=== PATIENT | male | born 1950 | race Caucasian/White ===

== ENCOUNTER 2021-02-27 09:18 | Outpatient (CLI) | payer OTHER, SELFPAY ==
--- NOTE | ~2021-02-27 | US_ITS ---
EXAMINATION: US venous doppler LE BI EXAM DATE: 02/27/2021 10:46 INDICATION: I87.2 - Venous insufficiency (chronic) (peripheral) TECHNIQUE: Multiple grayscale, color flow and Doppler images of the lower extremity venous systems bi laterally were obtained and reviewed. Saphenous venous mapping. The exam was reviewed on 02/27/2021. There is no prior study for comparison. FINDINGS: Right side: The right common femoral, femoral and profunda veins demonstrate normal color flow, respi ratory variation, augmentation and compressibility. Compressibility, color flow confirmed within the right popliteal, posterior tibial, peroneal, and greater saphenous veins. Right Standing Venous Mapping: reflux seconds duration; vein size. Greater saphenous origin: 0.5 seconds; 9.6 mm. Greater saphenous mid thigh:------ 0 seconds; 5.8 mm. Greater saphenous below knee:--- 0 seconds; 6.4 mm. Lesser saphenous proximally:------ 0 seconds; 3.4 mm. Lesser saphenous distally: 0 seconds; 1.5 mm. Left side: The left common femoral, femoral and profunda veins demonstrate normal color flow, respira tory variation, augmentation and compressibility. Compressibility, color flow confirmed within the l eft popliteal, posterior tibial, peroneal, and greater saphenous veins. Left Standing Venous Mapping: reflux seconds duration; vein size. Greater saphenous origin: 0 seconds; 5.9 mm. Greater saphenous mid thigh:------ 0 seconds; 3.3 mm. Greater saphenous below knee:--- 0 seconds; 4.4 mm. Lesser saphenous proximally:------ 0 seconds; 3.7 mm. Lesser saphenous distally: 0 seconds; 3.4 mm. IMPRESSION: 1. Right greater saphenous origin 0.5 seconds reflux. 2. Venous mapping as above. Reviewed, dictated and finalized at location A. ICIAN RELATIONS REPRESENTATIVE
== END 2021-02-27 09:19 | disposition home or self-care (01) ==
LOC: ANHIMG 09:27
PROVIDERS: PCP Internal Medicine; Visit Provider Orthopaedic Surgery
DX: I87.2 Venous insufficiency (chronic) (peripheral) (principal); M79.671 Pain in right foot; M79.672 Pain in left foot
CPT/HCPCS: 93970

== ENCOUNTER 2021-04-19 09:00 | Outpatient (RCR) | payer OTHER, SELFPAY ==
--- NOTE | 2021-03-21 10:53 | PTOPEVAL ---
PHYSICAL THERAPY EVALUATION AND PLAN OF CARE 03-21-21 Thank you for referring Wilbur Wright to [facility] for the diagnosis of B LE lymphedema. Paxton is scheduled to be seen for therapy? 3 x/week for 5 weeks. Please review, sign, date and return this plan of care KANE. I agree with and certify that the following plan of care is medically necessary. Referring Physician Date Attending Provider: Devon Strauss MD *PT Outpatient Evaluation Document 03/21/21 09:30 LORNA (Rec: 03/21/21 10:52 LORNA [id number]) Outpatient Past Medical History Past Medical History Source of Past Medical History Recalled from Previous Visit, Confirmed with Patient/Family Neurological History Hx Neurological Disorders No Significant History Cardiovascular History Hx Hypertension Yes: meds Respiratory History Hx Respiratory Disorders No Significant History Gastrointestinal History Hx Hernia Yes Genitourinary History Hx Genitourinary Disorders No Significant History Musculoskeletal History Hx Other Musculoskeletal Disorders Yes: B club feet- surgery as child;chronic foot pain-wider shoe & inserts Endocrine History Hx Endocrine Disorders No Significant History HEENT History Hx Other HEENT Disorders Yes: [place]-- war and planes Integumentary History Hx Skin Disorders No Significant History Evaluation Information Problem Diagnosis lymphedema in legs Onset September 2020 Prior Level of Function Activity Level (Last 3 Months) Occupation commercial hvac service technician Activity of Daily Living Ability Independent Indoor/Home Mobility Independent Community Mobility Independent Stairs Ability Independent Functional Cognition (Planning, Shopping Independent , Taking Medications) Cooking Yes Cleaning Yes Laundry Yes Shopping Yes Driving Yes Home Setting Home Type House Mobility Assistive Devices (Used Last 3 None Months) Comments Additional Prior Level of Function pt reports active lifestyle Comments but frustration over more problems doing things and not able to work as long as used to and things are harder to do ; 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
--- NOTE | 2021-03-30 09:33 | PCPTNOTE ---
pt signed consent and his info faxed to [facility] for auth for home compression pump.
--- NOTE | 2021-04-17 11:49 | PCPTNOTE ---
canceled today's appt; pt called and discussed his status on phone: he received his home intermittent compression pump and has been using it on both legs and trunk; wraps for L leg loose due to long holiday weekend, so he removed and put the compression garment on his L leg. Has been wearing compression garment on his R leg without any problems. And the L is doing OK also. Discussed with him, cancel today's appt, have him continue with above, then come in for next appt, on Sat, to measure and assess if compression garments are maintaining his lymphedema. With the reassessment on Sat, if all is good, it will be his last day.
--- NOTE | 2021-04-19 09:53 | PTOPEVAL ---
PHYSICAL THERAPY DISCHARGE 04-19-21 Refer to the clinical summary below, for his status today, compared to the initial evaluation. The goals have been achieved, therefore, he will be discharged from PT services. Thank you for referring Wilbur Wright to [facility].? Please review, sign, date and return this Discharge KANE. I agree with and certify that the following plan of care is medically necessary. Referring Physician Date Attending Provider: Devon Strauss MD Assessment Status Discharge Subjective Information Bill reports: compression knee Query Text:As Reported By Patient/ highs are comfortable, a Family challenge to put on, but tolerate them without any problems; using home intermittent compression pumps daily; walking is easier and better; is pleased with how his legs are; agree to discharge from PT; Pain Assessment Timing of Pain Assessment Timing of Pain Assessment Assessment Self Report Self Report Pain Level 0 Pain Score Pain Score 0: Self Report Skin Inspection Comment L LE: slight redness over lower leg from bottom foot to 20 cm; slight firmness over medial ankle, where he kicked something and injured his ankle- bruising is gone now thigh with good skin color and without firmness R LE: no redness or firmness over leg, good skin color; have elevated area/ fluid cyst over medial aspect over crease of anterior ankle; pt to dept with R and L calf high compression garment intact; he reports don/ doffing indep; he is not using gloves; there is a small hole in L ankle area- reinforced wearing socks with his boots to protect the garments; reviewed self massage, skin care, lotion, replacing garments--and monitor if 20-30 mmHg is not maintaining, may need more compression with 30-
== END 2021-04-19 16:08 | disposition home or self-care (01) ==
LOC: ANHPT 09:00
PROVIDERS: PCP Internal Medicine; Visit Provider Orthopaedic Surgery
DX: I89.0 Lymphedema, not elsewhere classified (principal); I87.2 Venous insufficiency (chronic) (peripheral)
CPT/HCPCS: 29581; 97016; 97140; 97161

== ENCOUNTER 2022-08-07 10:13 | Emergency (ER) | payer OTHER, SELFPAY ==
--- NOTE | ~2022-08-07 | XR_ITS ---
Right foot Technique: AP, oblique, and lateral views were obtained. Clinical History: Pain Findings: No acute fracture or dislocation is seen. There is a small chronic, nonunited fracture frag ment at the distal aspect of the calcaneus. Osseous alignment is anatomic. Mild to moderate degenerat brian changes are noted at the first MTP joint and interphalangeal joint of the great toe. Mild degener ative change noted at the tibiotalar joint. Soft tissues are unremarkable. Impression: No acute fracture or dislocation. 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 Degenerative changes, as detailed above. Reviewed, dictated and finalized at location . Impression: No acute fracture or dislocation. Small chronic nonunited fracture fragment at the distal aspect of the calcaneus . Degenerative changes, as detailed above.
[2022-08-07 10:31] VITALS: BP 110/65; PULSE 80; RESP 20; TEMP 37.2; O2SAT 100
--- NOTE | 2022-08-07 11:40 | ED.LOWEXIN ---
HPI - Extremity Injury (Lower) General Chief Complaint: Extremity Injury, Lower Stated Complaint: right foot pain Time Seen by Provider: 08/07/22 11:25 Source: patient, RN notes reviewed and old records reviewed Mode of arrival: ambulatory Limitations: no limitations History of Present Illness HPI Narrative: 72-year-old male presents to [facility] with complaints of right foot pain for the past 3 days with no known injury. Patient reports pain as 6/ 10 to dorsal and medial aspect of his right foot, foot is swollen with palpable pedal pulse present and foot warm to touch with nail beds having brisk capillary refill.Patient denies any calf pain or swelling or any known injury to right foot. Patient does have history of cub foot repair to bilateral feet as child and history of venous insufficiency lower extremities and wears pneumatic boots at night. MD complaint: other (right foot pain) Onset (ago): day(s) (3) Severity scale (1-10): 6 Treatments prior to arrival: other (none) Related Data Home Medications Medication Instructions Recorded Confirmed amlodipine 5 mg-benazepril 20 mg 1 cap PO DIRECTED 08/07/22 08/07/22 capsule metoprolol succinate 50 mg 50 mg PO DIRECTED 08/07/22 08/07/22 tablet,extended release 24 hr Allergies Allergy/AdvReac Type Severity Reaction Status Date / Time No Known Allergies Allergy Verified 08/07/22 10:35 Review of Systems Review of Systems: CONSTITUTIONAL: Denies fever, chills, or sweats. EYES: Denies visual changes, redness, or discharge. ENT: Denies rhinorrhea, congestion, sore throat, or otalgia. CARDIOVASCULAR: Denies chest pain, palpitations, or edema. RESPIRATORY: Denies cough or dyspnea. GASTROINTESTINAL: Denies abdominal pain, nausea, vomiting, or diarrhea. GENITOURINARY: Denies dysuria or hematuria. SKIN: Denies rash or itching. MUSCULOSKELETAL: Denies back pain, positive for right dorsal foot pain , or myalgia. NEUROLOGIC: Denies headache, numbness, or weakness. PSYCHIATRIC: Denies anxiety or depression. All systems reviewed & are unremarkable except as noted in HPI and below PMFSH Past Medical History Medical History (Updated 08/09/22 @ 09:26 by Chen Granados NP) Clubfoot of both lower extremities Hard of hearing Hypertension Lymphedema due to venous insufficiency Venous reflux Weight gain Surgical History Surgical History (Updated 08/09/22 @ 09:27 by Chen Granados NP) H/O hernia repair Status post club foot correction at Social History Social History Smoking status: Never smoker Alcohol intake: current Drinks per week: 5 Substance use: unknown Occupation/Education: occupation Additional occupation/education comments: Aviator Comments At time of signature, agree with nursing past medical, surgical, social and family history. There is no relevant family history pertinent to the presenting complaint Exam Narrative: GENERAL: Well-appearing, well-nourished, and in no acute distress. HEAD: Normocephalic, atraumatic. EYES: PERRLA and EOMI. ENT: Nares clear, no rhinorrhea or epistaxis. Mucous membranes moist.TM's normal throat pink with no swelling. NECK: Supple.no lymphadenopathy CHEST: Clear to auscultation. No respiratory distress.SAO2 100% on room air HEART: Regular rate and rhythm. No murmur heard. Normal peripheral pulses. ABDOMEN: Soft, nontender, nondistended, normal active bowel sounds. EXTREMITIES: Normal range of motion. No edema.Patient has swelling to the dorsal aspect of his right foot and discomfort along his medial foot with swelling noted.Patient has history of club feet as child with surgical repair. Patient reports no known injury to his right foot, pedal pulse right foot palpable, foot warm nail beds marina. Patient reports history of venous insufficiency to lower extremities and wears pneumatic boots to lower extremities nightly. SKIN: Warm, dry, no rash.
== END 2022-08-07 12:08 | disposition home or self-care (01) ==
PROVIDERS: Emergency Provider Registered Nurse; PCP Family Medicine
DX: M79.671 Pain in right foot (principal); I10 Essential (primary) hypertension
CPT/HCPCS: 73630; 99213; G0463